=== PATIENT | female | born 1950 | race Caucasian/White ===

== ENCOUNTER → 2016-09-05 | Day surgery (SDC) | payer MEDICARE, OTHER ==
[2016-09-05 07:44] LABS: CREATININE 0.8 mg/dL (0.5-1.0); POTASSIUM 3.8 mmol/L (3.5-5.1)
== END | disposition home or self-care (01) ==
LOC: FAS 07:24
PROVIDERS: Anesthesiology
DX: D12.3 Benign neoplasm of transverse colon (principal); D12.2 Benign neoplasm of ascending colon; K63.5 Polyp of colon; K21.9 Gastro-esophageal reflux disease without esophagitis; F32.9 Major depressive disorder, single episode, unspecified; F41.9 Anxiety disorder, unspecified; E03.9 Hypothyroidism, unspecified; E78.00 Pure hypercholesterolemia, unspecified; F17.210 Nicotine dependence, cigarettes, uncomplicated; J45.909 Unspecified asthma, uncomplicated; J44.9 Chronic obstructive pulmonary disease, unspecified; M19.90 Unspecified osteoarthritis, unspecified site; Z90.710 Acquired absence of both cervix and uterus; Z90.49 Acquired absence of other specified parts of digestive tract; Z88.2 Allergy status to sulfonamides; Z88.1 Allergy status to other antibiotic agents; Z88.5 Allergy status to narcotic agent; Z96.652 Presence of left artificial knee joint; Z79.1 Long term (current) use of non-steroidal anti-inflammatories (NSAID); Z79.02 Long term (current) use of antithrombotics/antiplatelets; Z79.899 Other long term (current) drug therapy; Z86.010 Personal history of colon polyps; Z86.73 Personal history of transient ischemic attack (TIA), and cerebral infarction without residual deficits
CPT/HCPCS: 36415; 80048; 88305; J2704

== ENCOUNTER 2021-03-22 18:06 | Inpatient (IN) | payer MEDICARE ==
[~2021-03-22] VITALS: Ht 160 cm; Wt 73.7 kg
[~2021-03-22 18:06] MED LIST: ANORO ELLIPTA1 EACH INH; FLUTICASONE; HYDROCODONE-APA1 TAB PO; LOPRESSOR25 MG PO; LOSARTAN HCTZ PO; MACROBID100 MG PO; MIRALAX17 GM PO; MOBIC7.5 MG PO; NORVASC5 MG PO; PLAVIX75 MG PO; PRISTIQ100 MG PO; PROTONIX 40MG T40 MG PO; ROBAXIN500 MG PO; SYNTHROID100 MCG PO; TRAMADOL HCL50 MG PO; VIIBRYD40 MG PO; ZOFRAN4 MG PO; ZOFRAN8 MG PO
[2021-03-22 20:15] LABS: BASOPHIL 0.4 % (0-2); EOSINOPHIL 0 % (0-7); HCT 43.4 % (37.0-47.0); HGB 14.6 g/dl (12.5-16.0); LYMPHOCYTE 18.7 % (15-48); MCH 31.3 pg (25.0-31.0); MCHC 33.6 g/dL (32.0-36.0); MCV 92.9 fL (78.0-100.0); MONOCYTE 5.8 % (0-12); MPV 10.6 fL (6.0-9.5); NEUTROPHIL 74.6 % (41-80); NRBC 0; PLT 298 K/uL (150-400); RBC 4.67 M/uL (4.20-5.40); RDW 11.9 % (11.5-14.0); WBC 12.3 K/uL (4.0-10.5)
[2021-03-22 20:24] LABS: INR 1.08 (0.9-1.2); PROTHROMBIN TIME 13.4 SECONDS (11.8-13.4)
[2021-03-22 20:32] LABS: ALBUMIN 3.9 g/dL (3.4-5.0); BILIRUBIN - TOTAL 0.9 mg/dL (0.2-1.0); CREATININE 2.07 mg/dL (0.51-0.95); GLOBULIN (CALCULATION) 3.7 g/dL; MAGNESIUM 2.1 mg/dL (1.8-2.4); TOTAL PROTEIN 7.6 g/dL (6.4-8.2)
[2021-03-22 20:38] LABS: PRO-BNP 456 pg/mL (<125)
[2021-03-22 22:06] LABS: CORONAVIRUS 2019 SARS-COV-2 NEGATIVE (NEGATIVE); INFLUENZA A NAA NEGATIVE (NEGATIVE)
[2021-03-22 22:38] LABS: BILIRUBIN 3+ mg/dL (NEGATIVE); BLOOD TRACE-INTACT Ery/uL (NEGATIVE); COLOR YELLOW (YELLOW); GLUCOSE (U) NORMAL (NORMAL); LEUKOCYTES NEGATIVE Leu/uL (NEGATIVE); NITRITE NEGATIVE (NEGATIVE); PROTEIN 1+ mg/dL (NEGATIVE); SPECIFIC GRAVITY >=1.030 (1.001-1.030); pH 5.5 (5.0-9.0)
[2021-03-22 22:42] LABS: CLARITY SLIGHTLY HAZY (CLEAR)
[2021-03-22 22:48] LABS: BACTERIA 1+; SQUAMOUS EPITHELIAL CELLS 20-50
[2021-03-23 05:39] LABS: BASOPHIL 0.3 % (0-2); EOSINOPHIL 0 % (0-7); HCT 37.3 % (37.0-47.0); HGB 12.5 g/dl (12.5-16.0); MCH 31.2 pg (25.0-31.0); MCHC 33.5 g/dL (32.0-36.0); MONOCYTE 5.1 % (0-12); MPV 10.9 fL (6.0-9.5); NRBC 0; PLT 235 K/uL (150-400); RBC 4.01 M/uL (4.20-5.40); RDW 11.9 % (11.5-14.0); WBC 10.3 K/uL (4.0-10.5)
[2021-03-23 06:01] LABS: BILIRUBIN - TOTAL 0.6 mg/dL (0.2-1.0); BUN/CREAT RATIO (CALC) 16.6 RATIO; CREATININE 1.81 mg/dL (0.51-0.95); GLOBULIN (CALCULATION) 3.5 g/dL; POTASSIUM 3.3 mmol/L (3.5-5.1); TOTAL PROTEIN 6.5 g/dL (6.4-8.2)
--- NOTE | 2021-03-23 15:24 | NUR ---
03/23/21 Ms. Dumont and her son share a home together. She has a standard walker which she uses out side of the home. Ms. Dumont reports to be able to manage her ADLS and IADLs. She is not interested in services.
[2021-03-24 05:40] LABS: BASOPHIL 0.4 % (0-2); EOSINOPHIL 0.8 % (0-7); HGB 10.7 g/dl (12.5-16.0); LYMPHOCYTE 34.4 % (15-48); MCH 31.1 pg (25.0-31.0); MCHC 33.4 g/dL (32.0-36.0); MONOCYTE 9.3 % (0-12); MPV 10.8 fL (6.0-9.5); NEUTROPHIL 54.7 % (41-80); NRBC 0; PLT 188 K/uL (150-400); RBC 3.44 M/uL (4.20-5.40); RDW 12.1 % (11.5-14.0); WBC 7.2 K/uL (4.0-10.5)
[2021-03-24 05:57] LABS: BUN/CREAT RATIO (CALC) 13.9 RATIO; CREATININE 1.37 mg/dL (0.51-0.95); MAGNESIUM 1.7 mg/dL (1.8-2.4); POTASSIUM 2.7 mmol/L (3.5-5.1)
[2021-03-25 04:21] LABS: BASOPHIL 0.5 % (0-2); EOSINOPHIL 1.5 % (0-7); HCT 30.7 % (37.0-47.0); HGB 10.3 g/dl (12.5-16.0); LYMPHOCYTE 40.8 % (15-48); MCH 31.3 pg (25.0-31.0); MCHC 33.6 g/dL (32.0-36.0); MCV 93.3 fL (78.0-100.0); MONOCYTE 10.1 % (0-12); MPV 10.9 fL (6.0-9.5); NEUTROPHIL 46.4 % (41-80); NRBC 0; PLT 165 K/uL (150-400); RBC 3.29 M/uL (4.20-5.40); RDW 12.2 % (11.5-14.0)
[2021-03-25 04:45] LABS: BUN/CREAT RATIO (CALC) 11.5 RATIO; CREATININE 0.96 mg/dL (0.51-0.95); POTASSIUM 3.9 mmol/L (3.5-5.1)
[2021-03-25] MEDS ORDERED: PHENERGAN25 M1 PO (14:33)
[2021-03-25] MEDS ORDERED: ZOFRAN4 M1 PO (14:33)
[2021-03-25] MEDS ORDERED: POTASSIUM CHLO20 ME1 PO (14:39)
== END 2021-03-25 15:35 | disposition home or self-care (01) | DRG 684 ==
LOC: FER 18:06 → FMS 21:32
PROVIDERS: Nurse Practitioner; Nurse Practitioner Family; ADMIT Internal Medicine
DX: N17.9 Acute kidney failure, unspecified (principal); E86.0 Dehydration; Z20.822 Contact with and (suspected) exposure to COVID-19; J43.9 Emphysema, unspecified; G89.4 Chronic pain syndrome; K21.9 Gastro-esophageal reflux disease without esophagitis; R11.2 Nausea with vomiting, unspecified; E87.6 Hypokalemia; I10 Essential (primary) hypertension; E86.1 Hypovolemia; K44.9 Diaphragmatic hernia without obstruction or gangrene; F32.9 Major depressive disorder, single episode, unspecified; Z96.652 Presence of left artificial knee joint; Z90.710 Acquired absence of both cervix and uterus; Z90.89 Acquired absence of other organs; Z90.49 Acquired absence of other specified parts of digestive tract; Z98.890 Other specified postprocedural states; Z88.2 Allergy status to sulfonamides; Z88.6 Allergy status to analgesic agent; Z88.1 Allergy status to other antibiotic agents
CPT/HCPCS: 36415; 80048; 80053; 81001; 83605; 83690; 83735; 83880; 84145; 84484; 85025; 85610; 87040; 93005; C9113; J0780; J1650; J2060; J2405; J2543; J2550; J3475; J3480; J7030; U0002